=== PATIENT | female | born 2000 | race Caucasian/White ===

== ENCOUNTER → 2021-01-14 07:37 | Outpatient (CLI) | payer OTHER, SELFPAY ==
--- NOTE | 2021-01-14 | DI.NM.S_ITS ---
PROCEDURE: NM HIDA NO EJECTION FRACTION RADIOPHARMACEUTICAL: 5.05 mCi Tc-99m mebrofenin IV. INDICATIONS: Generalized abdominal pain TECHNIQUE: Following intravenous administration of Tc-99m mebrofenin, sequential anterior abdominal images were obtained through at least 60 minutes. COMPARISON: None. FINDINGS: There is normal tracer uptake and excretion by the liver. There is normal visualization of intrahepatic ducts, common bile duct, and the gallbladder. There is normal tracer excretion into duodenum. IMPRESSION: Normal filling of gallbladder. No evidence for acute cholecystitis. Dictated by: Maddy Romero M.D. on 01/14/2021 at 11:14 Approved by: Maddy Romero M.D. on 01/14/2021 at 11:16
== END ==
PROVIDERS: PCP Physician Assistant; Referring Provider Physician Assistant; Visit Provider Physician Assistant
DX: R10.84 Generalized abdominal pain (principal)
CPT/HCPCS: 78226; A9537

== ENCOUNTER 2021-06-23 07:52 | Emergency (ER) | payer OTHER, SELFPAY ==
[2021-06-23] VITALS (13 sets, daily range): BP systolic 110–136; BP diastolic 56–80; PULSE 62–98; RESP 16–20; TEMP 36.6–36.8; O2SAT 97–100; BMI 34.7
--- NOTE | 2021-06-23 08:50 | ED.ABDPAIN ---
HPI - Abdominal Pain General Chief Complaint: Abdominal Pain Stated Complaint: Severe abd pain, vomiting, diarrhea Time Seen by Provider: 06/23/21 08:50 History of Present Illness HPI narrative: The patient developed epigastric abdominal pain last night. With this she has nausea. She denies emesis or hemoptysis. She takes famotidine daily. She has a history of recurrent abdominal pain. She has multiple ER visits. She is undergoing endoscopy and colonoscopy. IBS has been mentioned, to her knowledge she does not have a specific diagnosis. Per gallbladder evaluation has been normal. Pain in the upper/mid abdomen does not radiate. She has no back pain. She has no dysuria hematuria. Her menstrual cycle is about to start, she is currently spotting. 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 Related Data Allergies Allergy/AdvReac Type Severity Reaction Status Date / Time Penicillins Allergy Mild Hives Verified 06/23/21 09:16 Review of Systems Constitutional Constitutional: Reports as per HPI, Denies chills, Denies fatigue, Denies fever(s) and Denies headache(s) Eyes Eyes: Denies change in vision ENT Ears, Nose, Mouth, and Throat: Denies vertigo, Denies dizziness, Denies headache(s), Denies sinus pressure and Denies sore throat Cardiovascular Cardiovascular: Denies chest pain, Denies syncope, Denies rapid heart rate and Denies dyspnea Respiratory Respiratory: Denies cough and Denies dyspnea Gastrointestinal Gastrointestinal: Reports as per HPI Genitourinary Genitourinary: Reports as per HPI Musculoskeletal Musculoskeletal: Denies back pain Integumentary/Breasts Skin/Breast: Denies lesions and Denies rash Neurologic Neurologic: Denies confusion, Denies vertigo, Denies dizziness, Denies syncope and Denies headache(s) Psychiatric Psychiatric: Denies anxiety and Denies confusion Endocrine Endocrine: Denies fatigue Hematologic/Lymphatic On Anticoagulants: No Patient History Medical History Irritable bowel Social History Smoking Status: Never smoker Smoking Status: Never smoker Substance Use Type: does not use Exam Initial Vital Signs Initial Vital Signs: Vital Signs Pulse Rate 77 06/23/21 08:09 Pulse Oximetry 98 06/23/21 08:09 Const General: cooperative, healthy appearing, comfortable, well developed and well groomed [facility] Head: normocephalic and atraumatic Mouth: oral mucosae normal Throat: posterior oropharynx normal Eyes Conjunctivae: conjunctivae normal Sclera: sclerae normal Pupils: PERRL EOM: EOM intact bilaterally Neck Neck: No lymphadenopathy Resp Auscultation: clear to auscultation bilaterally Cardio Rate: regular rate Rhythm: regular rhythm Heart Sounds: S1 normal and S2 normal GI Other: Epigastric abdominal tenderness. No distension. No guarding rebound. No masses. Normal bowel sounds. Back/Spine/Pelvis Back: No CVA tenderness Skin General: no rashes or lesions noted Neuro General: patient alert, patient awake, patient oriented x3 and no focal motor deficits Extrem General: normal to inspection and no calf tenderness Psych Mental Status: mental status grossly normal Course Course Course Narrative: The patient initially improved after Protonix, Reglan and Benadryl. She developed nausea vomiting after sipping water. Zofran was given. She is now inked symptomatic. Labs are reassuring. She has Zofran available at home. She has previously been underthe care of a section housekeeper. I suggested she followup with her section housekeeper. Orders Ordered: ED Orders 06/23/21 07:57 EKG-12 Lead Stat 06/23/21 08:49 Urine Microscopic Stat 06/23/21 09:05 Complete Blood Count AUTO DIFF Stat 06/23/21 10:10 Comprehensive Metabolic Panel Stat Lipase Stat Sodium Chloride (Normal Saline 0.9%) 1,000 mls @ 250 mls/hr IV CONT ILYA Last Infusion: 06/23/21 12:25 Dose: 0 mls/hr Documented by: Admin: 06/23/21 09:22 Dose: 250 mls/hr Documented by: MATTY Discontinued Medications Diphenhydramine HCl (Diphenhydramine 50 Mg/Ml Vial) 25 mg IV NOW ONE Stop: 06/23/21 08:53 Last Admin: 06/23/21 09:22 Dose: 25 mg Documented by: MATTY Metoclopramide HCl (Metoclopramide 10 Mg/2 Ml Inj) 10 mg IV NOW ONE Stop: 06/23/21 08:53 Last Admin: 06/23/21 09:24 Dose: 10 mg Documented by: MATTY Ondansetron HCl (Ondansetron 4 Mg/2 Ml Inj) 4 mg IV NOW ONE Stop: 06/23/21 11:56 Last Admin: 06/23/21 12:20 Dose: 4 mg Documented by: BEATA Pantoprazole Sodium (Pantoprazole 40 Mg Vial) 40 mg IV NOW ONE Stop: 06/23/21 08:53 Last Admin: 06/23/21 09:22 Dose: 40 mg Documented by: MATTY Vital Signs Vital signs: Vital Signs - 8 hr 06/23/21 08:09 06/23/21 08:10 06/23/21 08:30 Temperature 97.8 F Pulse Rate 77 74 80 Respiratory Rate 20 Blood Pressure 132/67 135/66 Pulse Oximetry 98 98 98 06/23/21 09:00 06/23/21 09:25 06/23/21 09:30 Temperature Pulse Rate 75 83 81 Respiratory Rate Blood Pressure 131/69 124/68 Pulse Oximetry 97 99 100 06/23/21 10:00 06/23/21 10:20 06/23/21 10:30 Temperature Pulse Rate 73 86 86 Respiratory Rate Blood Pressure 124/80 125/66 112/57 L Pulse Oximetry 100 100 99 06/23/21 11:00 06/23/21 11:30 06/23/21 12:23 Temperature Pulse Rate 79 76 98 H Respiratory Rate 16 Blood Pressure 110/63 111/56 L 119/58 L Pulse Oximetry 99 97 97 06/23/21 13:52 Temperature 98.3 F Pulse Rate 89 Respiratory Rate 16 Blood Pressure 117/58 L Pulse Oximetry 98 MDM - Abdominal Pain Lab Data Result diagrams: 06/23/21 09:05 06/23/21 10:10 Labs: Lab Results 06/23/21 06/23/21 06/23/21 Range/Units 08:49 09:05 10:10 WBC 13.6 H (4.5-11.0) X10^3/uL RBC 4.83 (4.0-5.2) X10^6/uL Hgb 13.7 (12.0-16.0) g/dL Hct 39.5 (36-46) % MCV 81.6 (80-100) fL MCH 28.2 (26-34) PG MCHC 34.6 (30-36) % RDW 12.9 (11.6-14.8) % Plt Count 359 (150-400) X10^3/uL Neut % (Auto) 84.9 H (50-75) % Lymph % (Auto) 10.0 L (25-40) % [place] % (Auto) 4.4 (3-14) % Eos % (Auto) 0.4 L (2-4) % Baso % (Auto) 0.3 (0-2) % Neut # (Auto) 08231 H (1352-9981) /uL Lymph # (Auto) 1400 (1491-1986) /uL [place] # (Auto) 600 (0-900) /uL Eos # (Auto) 100 (0-450) /uL Baso # (Auto) 0 (0-100) /uL Sodium 139 (137-145) mmol/L Potassium 4.3 (3.4-5.1) mmol/L Chloride 109 H (98-107) mmol/L Carbon Dioxide 26 (22-32) mmol/L BUN 7 (7-17) mg/dL Creatinine 0.59 (0.52-1.04) mg/dL Estimated GFR > 60.0 (>60) mL/min BUN/Creatinine Ratio 11.9 (6-22) Glucose 85 (70-100) mg/dL Calcium 8.6 (8.4-10.2) mg/dL Total Bilirubin 0.3 (0.2-1.3) mg/dL AST 19 (14-36) IU/L ALT 12 (<35) IU/L Alkaline Phosphatase 78 (38-126) U/L Total Protein 7.1 (6.3-8.2) g/dL Albumin 4.0 (3.5-5.0) g/dL Globulin 3.1 (1.7-4.1) g/dL Albumin/Globulin Ratio 1.3 (1.0-2.8) Lipase 131 (23-300) U/L Urine RBC 1-5/hpf (0-5/HPF) Urine WBC 0-1/hpf (0-5/HPF) Ur Squamous Epith Cells 0-1 /hpf (0-5/HPF) Urine Bacteria None seen (None) Ur Culture Indicated? Cult not indicated Point of care testing: Point of Care Testing Test Results Negative Urine Dip Bedside Urine Glucose Negative Bedside Urine Bilirubin - Negative Bedside Urine Ketone - Negative Urine Specific [place] 1.025 Bedside Urine Occult Blood + Bedside Urine pH 6.0 Bedside Urine Protein - Negative Bedside Urine Urobilinogen - Negative Bedside Urine Nitrite - Negative Bedside Urine Leukocytes - Negative Esterase Discharge Plan Departure Patient Disposition: Home Clinical Impression: Epigastric abdominal pain, Nausea & vomiting Instructions: DI for Dyspepsia Activity Restrictions/Additional Instructions: Drink clear liquids, you should be on a bland diet until symptoms improve. Zofran every 4 hours as needed for nausea. Tylenol every 4 hours as needed for pain. I recommend he follow up your PCM, consider repeat GI evaluation. Return to ER as necessary. Referrals: Henrietta Tierney PA-C [Primary Care Provider] -
[2021-06-23 08:57] LABS: Bacteria Urine None Seen; RBC Urine 1-5/HPF (0-5/HPF); Squamous Epithelial Cell Urine 0-1 /HPF (0-5/HPF); WBC Urine 0-1/HPF (0-5/HPF)
[2021-06-23 08:58] LABS: Culture Indicated Urine Cult Not Indicated
[2021-06-23 09:11] LABS: Add Manual Diff / Slide Review NO; Basophils Absolute Auto 0 /uL (0-100); Basophils Percent Auto 0.3 % (0-2); Eosinophils Absolute Auto 100 /uL (0-450); Eosinophils Percent Auto 0.4 % (2-4); Hematocrit 39.5 % (36-46); Hemoglobin 13.7 g/dL (12.0-16.0); Lymphocytes Absolute Auto 1400 /uL (1100-4500); Mean Corpuscular HGB Conc 34.6 % (30-36); Mean Corpuscular Hemoglobin 28.2 PG (26-34); Mean Corpuscular Volume 81.6 fL (80-100); Monocytes Absolute Auto 600 /uL (0-900); Monocytes Percent Auto 4.4 % (3-14); Neutrophils Absolute Auto 11600 /uL (1500-7000); Neutrophils Percent Auto 84.9 % (50-75); Platelet Count 359 X10^3/uL (150-400); Red Blood Cell Count 4.83 X10^6/uL (4.0-5.2); Red Cell Distribution Width 12.9 % (11.6-14.8); White Blood Cell Count 13.6 X10^3/uL (4.5-11.0)
[2021-06-23] MEDS: PANTOPRAZOLE 40 MG VIAL IV (09:22)
[2021-06-23] MEDS: diphenhydrAMINE 50 MG/ML VIAL 25 MG IV (09:22)
[2021-06-23] MEDS: SODIUM CHLORIDE 0.9% 1,000 ML 250 ML IV (09:22)
[2021-06-23] MEDS: METOCLOPRAMIDE 10 MG/2 ML INJ IV (09:24)
[2021-06-23 11:04] LABS: Alanine Aminotransferase 12 IU/L (<35); Albumin Globulin Ratio 1.3 (1.0-2.8); Alkaline Phosphatase 78 U/L (38-126); Aspartate Aminotransferase 19 IU/L (14-36); BUN Creatinine Ratio 11.9 (6-22); Bilirubin Total 0.3 mg/dL (0.2-1.3); Blood Urea Nitrogen 7 mg/dL (7-17); Calcium 8.6 mg/dL (8.4-10.2); Carbon Dioxide 26 mmol/L (22-32); Chloride 109 mmol/L (98-107); Estimated Glomerular Filt Rate > 60.0 mL/min (>60); Globulin 3.1 g/dL (1.7-4.1); Glucose 85 mg/dL (70-100); HEMOLYSIS < 15 (0-50); Lipase 131 U/L (23-300); Potassium 4.3 mmol/L (3.4-5.1); Sodium 139 mmol/L (137-145); Total Protein 7.1 g/dL (6.3-8.2)
[2021-06-23] MEDS: ONDANSETRON 4 MG/2 ML INJ IV (12:20)
== END 2021-06-23 14:09 | disposition home or self-care (01) ==
PROVIDERS: Emergency Provider Emergency Medicine; PCP Physician Assistant
DX: R10.13 Epigastric pain (principal); R11.2 Nausea with vomiting, unspecified
CPT/HCPCS: 36415; 80053; 81003; 81015; 81025; 83690; 85025; 93005; 93010; 96361; 96374; 96375; 99284; C9113; J1200; J2405; J2765